=== PATIENT | female | born 1990 | race American Indian/Alaskan Native ===

== ENCOUNTER 2016-11-06 18:00 | Emergency (ER) | payer SELFPAY ==
[2016-11-06 19:50] VITALS: BP 120/68
--- NOTE | 2016-11-06 21:53 | Ultrasound Report ---
FINAL REPORT EXAM: US OB \T\lt; = 14 WEEKS FETUS HISTORY: / LOWER ABD CRAMPING COMPARISONS: None. FINDINGS: Transabdominal grayscale, color and M-mode 1st trimester ultrasound Single living intrauterine with recorded cardiac activity of 177 beats per minute and crown-rump length of 73 millimeters corresponding to estimated gestational age of 13 weeks 3 days and delivery date of 05/11/2017. Amniotic fluid volume is subjectively within normal limits. No perigestational hemorrhage identified. The ovaries are sonographically unremarkable and measure 2.6 x 1.4 x 2.4 cm on the right and 2.8 x 1.4 x 2.4 cm on the left. IMPRESSION: Single living intrauterine with estimated gestational age of 13 weeks 3 days corresponding to delivery date of 05/11/2017. In the absence of additional clinical symptoms, detailed anatomy scan is recommended at 20 weeks gestational age.
== END 2016-11-07 00:13 | disposition left against medical advice (07) ==
LOC: ED 18:00
DX: O26.892 Other specified pregnancy related conditions, second trimester (principal); M54.5 Low back pain; R10.30 Lower abdominal pain, unspecified; F17.200 Nicotine dependence, unspecified, uncomplicated; Z3A.16 16 weeks gestation of pregnancy; Z53.21 Procedure and treatment not carried out due to patient leaving prior to being seen by health care provider
CPT/HCPCS: 36415; 76801; 84703

== ENCOUNTER 2017-01-01 22:50 | Emergency (ER) | payer MEDICAID, OTHER ==
[2017-01-02 03:00] VITALS: BP 130/73
== END 2017-01-01 23:15 | disposition left against medical advice (07) ==
LOC: TRG 22:50 → ED 22:50 → TRG 22:57 → ED 23:15 → EDSTATUS 23:59
DX: O26.892 Other specified pregnancy related conditions, second trimester (principal); R10.9 Unspecified abdominal pain; Z53.21 Procedure and treatment not carried out due to patient leaving prior to being seen by health care provider

== ENCOUNTER 2017-03-14 20:25 | Outpatient (CLI) | payer MEDICAID ==
[2017-03-14 21:17] VITALS: BP 119/59
[2017-03-14] MEDS ORDERED: LACTATED RINGERS 500 ML IV ONE (21:18)
== END 2017-03-14 22:40 | disposition home or self-care (01) ==
LOC: TRG 20:25
PROVIDERS: ATTEND Obstetrics & Gynecology Gynecology
DX: O62.9 Abnormality of forces of labor, unspecified (principal); O99.333 Smoking (tobacco) complicating pregnancy, third trimester; O47.03 False labor before 37 completed weeks of gestation, third trimester; Z3A.31 31 weeks gestation of pregnancy